=== PATIENT | male | born 1985 | race Caucasian/White ===

== ENCOUNTER 2017-01-12 18:26 | Emergency (ER) | payer OTHER | END 2017-01-12 20:18 | disposition home or self-care (01) | LOC: ER 18:26 | DX: G44.209 Tension-type headache, unspecified, not intractable (principal); M54.2 Cervicalgia; M25.511 Pain in right shoulder; M25.512 Pain in left shoulder; E66.9 Obesity, unspecified | CPT/HCPCS: 36415; 96374; 96375; J1100; J1200; J1885; J2765 ==